=== PATIENT | male | born 1990 | race Caucasian/White ===

== ENCOUNTER 2016-10-23 14:09 | Emergency (ER) | payer OTHER ==
[~2016-10-23] VITALS: Wt 63.6 kg
[2016-10-23] MEDS ORDERED: ONDANSETRON 4 MG INJ IV STA (14:52)
[2016-10-23] MEDS ORDERED: SOD CHLORIDE 0.9% 1,000 ML IV ONE (15:00)
[2016-10-23] MEDS ORDERED: LEVETIRACETAM 500 MG (PMX) 100 ML IVPB ONE (15:00)
[2016-10-23 15:44] LABS: ADD SCAN DIFF NO
[2016-10-23 15:45] LABS: ABNORMAL IP MESSAGE 1; BASOPHIL # 0.1 10^3/ul (0.0-0.1); BASOPHILS % 0.4 % (0.0-2.0); EOSINOPHILS % 0.1 % (0.0-7.0); HEMATOCRIT 39.8 % (42.0-52.0); LYMPHOCYTES # 1.9 10^3/ul (0.8-2.9); LYMPHOCYTES % 13.9 % (15.0-51.0); MEAN CORPUSCULAR HEMOGLOBIN 30.4 pg (29.0-33.0); MEAN CORPUSCULAR HGB CONC 35.2 g/dl (32.0-37.0); MEAN CORPUSCULAR VOLUME 86.5 fl (82.0-101.0); MEAN PLATELET VOLUME 11.5 fl (7.4-10.4); MONOCYTE # 1.6 10^3/ul (0.3-0.9); MONOCYTES % 11.7 % (0.0-11.0); NEUTROPHIL # 10.1 10^3/ul (1.6-7.5); NEUTROPHILS % 73.5 % (39.0-77.0); PLATELET COUNT 291 10^3/UL (140-415); RED CELL DISTRIBUTION WIDTH 14.1 % (11.5-14.5); WHITE BLOOD COUNT 13.7 10^3/ul (4.8-10.8)
[2016-10-23 16:17] LABS: ALANINE AMINOTRANSFERASE 49 IU/L (13-69); ALBUMIN 5.1 g/dl (3.3-4.9); ALBUMIN/GLOBULIN RATIO 1.54; ALKALINE PHOSPHATASE 71 IU/L (42-121); ANION GAP 17 (8-16); ASPARTATE AMINO TRANSFERASE 25 IU/L (15-46); BILIRUBIN,INDIRECT 0.7 mg/dl (0-1.1); BILIRUBIN,TOTAL 0.7 mg/dl (0.2-1.3); BLOOD UREA NITROGEN 32 mg/dl (7-20); CALCIUM 10.6 mg/dl (8.4-10.2); CARBON DIOXIDE 20 mmol/L (21-31); CHLORIDE 110 mmol/L (97-110); CREATININE 1.24 mg/dl (0.61-1.24); GLUCOSE 101 mg/dl (70-220); POTASSIUM 3.8 mmol/L (3.5-5.1); SODIUM 143 mmol/L (135-144); TOTAL PROTEIN 8.4 g/dl (6.1-8.1)
[2016-10-23 16:18] LABS: ETHANOL < 10.0 mg/dl
--- NOTE | 2016-10-23 16:27 | ERD ---
ER Documentation Chief Complaint Date/Time DATE: 10/23/16 TIME: 16:22 Chief Complaint possible seizure HPI 25-year-old man brought in by EMS off the streets for altered mentation. They suspected seizure. Patient does admit to having seizures but denies using medications. He had no loss of bowel or bladder control, he denies drug use or alcohol abuse, denies fevers or chills, no vomiting or diarrhea. Patient denies chest pain or shortness of breath. Patient was transported here by EMS without further complications. Patient denies suicidal homicidal ideation. ROS All systems reviewed and are negative except as per history of present illness. Medications Home Meds Active Scripts Levetiracetam* (Keppra*) 500 Mg Tablet, 500 MG PO BID, #30 TAB Prov:TABITHA OTT MD 10/23/16 Allergies Allergies: Coded Allergies: No Known Allergy (Unverified , 10/23/16) PMhx/Soc Seizures FmHx Family History: No diabetes Physical Exam Vitals Vital Signs Date Time Temp Pulse Resp B/P Pulse Ox O2 Delivery O2 Flow Rate FiO2 10/23/16 19:10 97.9 89 17 135/72 97 Room Air 10/23/16 18:20 79 16 153/64 99 Room Air 10/23/16 16:28 98.5 89 13 123/81 100 Room Air 10/23/16 14:43 98.0 90 20 128/65 100 Physical Exam GENERAL: Well-developed, well-nourished, appears postictal and dehydrated HEENT: Dry mucous membranes, pink conjunctiva, no cervical spine tenderness or step-off deformities, no goiter, no jaundice or icterus, extraocular movements intact without pain. No submandibular induration, and no pharyngeal erythema NEURO: Alert and oriented 3, cranial nerves II through XII intact bilaterally, pupils equal round reactive to light, no focal deficits or facial asymmetry, sensation intact distally Strength 5/5 in upper and lower extremities bilaterally CARDIAC: Regular rate and rhythm, no murmurs rubs or gallops LUNGS: Clear bilaterally no wheezing crackles or stridor ABDOMEN: Soft nontender, no guarding, no rigidity, no rebound, no psoas sign no obturator sign. Normoactive bowel sounds SKIN: Warm and dry to touch, no abrasions, contusions, or hematomas, no lacerations, no ecchymosis, no target lesions, and without ulcers EXTREMITIES: No clubbing cyanosis or edema, calves are bilaterally symmetrical, no Homans sign, no popliteal cord sign. Distal pulses equal and bilateral PSYCH: Normal affect without agitation or irritability Result Diagram: 10/23/16 1526 10/23/16 1526 Results 24 hrs Laboratory Tests Test 10/23/16 15:26 10/23/16 16:40 White Blood Count 13.710^3/ul Red Blood Count 4.6010^6/ul Hemoglobin 14.0g/dl Hematocrit 39.8% Mean Corpuscular Volume 86.5fl Mean Corpuscular Hemoglobin 30.4pg Mean Corpuscular Hemoglobin Concent 35.2g/dl Red Cell Distribution Width 14.1% Platelet Count 78095^3/UL Mean Platelet Volume 11.5fl Neutrophils % 73.5% Lymphocytes % 13.9% Monocytes % 11.7% Eosinophils % 0.1% Basophils % 0.4% Nucleated Red Blood Cells % 0.0/100WBC Neutrophils # 10.110^3/ul Lymphocytes # 1.910^3/ul Monocytes # 1.610^3/ul Eosinophils # 0.010^3/ul Basophils # 0.110^3/ul Nucleated Red Blood Cells # 0.010^3/ul Sodium Level 143mmol/L Potassium Level 3.8mmol/L Chloride Level 110mmol/L Carbon Dioxide Level 20mmol/L Anion Gap 17 Blood Urea Nitrogen 32mg/dl Creatinine 1.24mg/dl Glucose Level 101mg/dl Calcium Level 10.6mg/dl Total Bilirubin 0.7mg/dl Direct Bilirubin 0.00mg/dl Indirect Bilirubin 0.7mg/dl Aspartate Amino Transf (AST/SGOT) 25IU/L Alanine Aminotransferase (ALT/SGPT) 49IU/L Alkaline Phosphatase 71IU/L Troponin I < 0.012ng/ml Total Protein 8.4g/dl Albumin 5.1g/dl Globulin 3.30g/dl Albumin/Globulin Ratio 1.54 Lipase 51U/L Ethyl Alcohol Level < 10.0mg/dl Urine Color YELLOW Urine Clarity CLEAR Urine pH 7.0 Urine Specific [place] 1.025 Urine Ketones TRACEmg/dL Urine Nitrite NEGATIVEmg/dL Urine Bilirubin NEGATIVEmg/dL Urine Urobilinogen NEGATIVEmg/dL Urine Leukocyte Esterase NEGATIVELeu/ul Urine Hemoglobin NEGATIVEmg/dL Urine Glucose NEGATIVEmg/dL Urine Total Protein NEGATIVEmg/dl Urine Opiates Screen Negative Urine Barbiturates Negative Urine Amphetamines Screen POSITIVE Urine Benzodiazepines Screen Positive Urine Cocaine Screen Negative Urine Cannabinoids Negative Current Medications Medications (Trade) Dose Ordered Sig/Jamie Route PRN Reason Start Time Stop Time Status Last Admin Dose Admin Levetiracetam 100 ml @ 400 mls/hr ONCE ONCE IVPB 10/23/16 15:00 10/23/16 15:14 DC 10/23/16 16:11 Sodium Chloride (NS) 1,000 ml @ 1,000 mls/hr Q1H ONCE IV 10/23/16 15:00 10/23/16 15:59 DC 10/23/16 15:41 Ondansetron HCl 4 mg 4 mg ONCE STAT IV 10/23/16 14:52 10/23/16 14:56 DC 10/23/16 15:41 Magnesium Sulfate (Magnesium Sulfate 2 Gm/50 ml) 50 ml @ 25 mls/hr ONCE ONCE IVPB 10/23/16 16:30 10/23/16 18:29 DC 10/23/16 17:05 [facility] IV line was established patient was placed on bus monitor rhythm strip revealed a sinus rhythm at about 80 bpm with upright P and T waves. Patient was afebrile. I suspect alcohol withdrawal seizure or primary seizure disorder. EKG performed, read by me revealed a normal sinus rhythm 87 bpm, normal axis, narrow QRS complex with a prolonged QT at 507 ms, no concerning ST elevations or depressions noted. I administered 1 L normal saline intravenously, Keppra 500 mg IV, and magnesium 2 g IV for prolonged QT syndrome. CBC revealed leukocytosis of 14, electrolytes revealed dehydration with a BUN/ creatinine of 32/1.2, liver function tests normal, troponin negative. Urine analysis was negative for infection, drug screen positive for methamphetamines. Alcohol level negative. Differential diagnoses considered, included but not limited to acute coronary syndrome, pulmonary embolism, aortic dissection, abdominal aortic aneurysm, sepsis, stroke, meningitis, encephalitis, pneumonia, appendicitis, cholecystitis , bowel obstruction, pyelonephritis, nephrolithiasis, cystitis, as well as metabolic, hematologic, and electrolyte abnormalities. As well as abscess, cellulitis, fractures, and dislocations. Patient feels much better at this time, and vital signs are normal, symptoms have improved. I did give strict instructions to return to the ED if symptoms continue or worsen, patient will otherwise follow-up with primary care physician. Patient understood instructions and agreed to plan. Disclaimer: Inadvertent spelling and grammatical errors are likely due to EHR/ dictation software use and do not reflect on the overall quality of patient care. Also, please note that the electronic time recorded on this note does not necessarily reflect the actual time of the patient encounter. Departure Diagnosis: Primary Impression: Seizure disorder Additional Impressions: Dehydration Methamphetamine abuse Condition: TABITHA Sharif MD Oct 23, 2016 16:26
[2016-10-23 16:29] LABS: TROPONIN-I < 0.012 ng/ml (0.00-0.12)
[2016-10-23] MEDS ORDERED: MAGNESIUM SULFATE 2 GM/50 ML 50 ML IVPB ONE (16:30)
[2016-10-23 17:10] LABS: ADD UMIC NO; UR ASCORBIC ACID NEGATIVE (NEGATIVE); UR BILIRUBIN (Dip) NEGATIVE (NEGATIVE); UR BLOOD (Dip) NEGATIVE (NEGATIVE); UR CLARITY CLEAR (CLEAR); UR COLOR YELLOW (YELLOW); UR GLUCOSE (Dip) NEGATIVE (NEGATIVE); UR KETONES (Dip) TRACE mg/dL (NEGATIVE); UR LEUKOCYTE ESTERASE (Dip) NEGATIVE Leu/ul (NEGATIVE); UR NITRITE (Dip) NEGATIVE (NEGATIVE); UR SPECIFIC GRAVITY (Dip) 1.025 (1.003-1.030); UR TOTAL PROTEIN (Dip) NEGATIVE (NEGATIVE); UR UROBILINOGEN (Dip) NEGATIVE (NEGATIVE)
[2016-10-23 17:28] LABS: BARBITURATES Negative (NEGATIVE); BENZODIAZEPINES Positive (NEGATIVE); CANNABINOIDS Negative (NEGATIVE); COCAINE Negative (NEGATIVE); OPIATES Negative (NEGATIVE)
[2016-10-23] MEDS ORDERED: LEVE-5 PO (17:34)
[2016-10-23 19:10] VITALS: BP 135/72; PULSE 89; RESP 17; TEMP 97.9
== END 2016-10-23 19:21 | disposition home or self-care (01) ==
LOC: E/R 14:09
DX: G40.909 Epilepsy, unspecified, not intractable, without status epilepticus (principal); E86.0 Dehydration; F15.10 Other stimulant abuse, uncomplicated
CPT/HCPCS: 36415; 80053; 80306; 80307; 81003; 83690; 84484; 85025; 93005; 96374; 96375; J1953; J2405; J3475; Z7502